=== PATIENT | female | born 1960 | race Hispanic/Latino ===

== ENCOUNTER → 2022-08-08 | Outpatient (CLI) | payer OTHER | END | disposition home or self-care (01) | LOC: RAH 13:07 | PROVIDERS: ATTEND Internal Medicine | DX: M17.11 Unilateral primary osteoarthritis, right knee (principal); M25.761 Osteophyte, right knee | CPT/HCPCS: 73562 ==

== ENCOUNTER → 2022-12-06 | Outpatient (CLI) | payer OTHER | END | disposition home or self-care (01) | LOC: RAH 10:09 | PROVIDERS: ATTEND Internal Medicine | DX: M48.02 Spinal stenosis, cervical region (principal); M47.812 Spondylosis without myelopathy or radiculopathy, cervical region; M54.2 Cervicalgia | CPT/HCPCS: 72040 ==

== ENCOUNTER 2023-10-17 13:00 | Inpatient (IN) | payer OTHER ==
[~2023-10-17] VITALS: Ht 157.5 cm; Wt 100.3 kg
[2023-10-20 11:22] LABS: BASOPHILS # (AUTO) 0.04 K/uL (0.00-0.20); BASOPHILS % (AUTO) 0.7 % (0.0-5.0); EOSINOPHILS # (AUTO) 0.17 K/uL (0.00-0.70); EOSINOPHILS % (AUTO) 2.8 % (0.0-8.0); HEMATOCRIT 32.8 % (36-48); IMMATURE GRANULOCYTE ABSOLUTE 0.02 K/uL (0-1); LYMPHOCYTES # (AUTO) 1.8 K/uL (1.0-4.8); LYMPHOCYTES % (AUTO) 29.3 % (21.0-51.0); MEAN CORPUSCULAR HEMOGLOBIN 30.2 pg (27.0-33.0); MEAN CORPUSCULAR HGB CONC 33.2 g/dL (32.0-36.0); MEAN CORPUSCULAR VOLUME 90.9 fL (79-99); MONOCYTES # (AUTO) 0.4 K/uL (0.1-1.0); MONOCYTES % (AUTO) 6.7 % (3.0-13.0); NEUTROPHILS # (AUTO) 3.7 K/uL (1.8-7.7); NEUTROPHILS % (AUTO) 60.2 % (40.0-77.0); PLATELET COUNT (AUTO) 195 K/uL (130-400); RED BLOOD CELL COUNT(AUTO) 3.61 MIL/uL (4.00-5.50); RED CELL DISTRIBUTION WIDTH 12.7 % (11.0-15.5); WHITE BLOOD COUNT (AUTO) 6.1 K/uL (4.8-10.8)
[2023-10-20 11:25] LABS: POTASSIUM 4.4 mmol/L (3.5-5.1)
[2023-10-20 11:28] LABS: INR 1.04 (0.85-1.15); PROTHROMBIN TIME 11.2 SEC (9.6-11.6)
[2023-10-20 11:45] VITALS: BP 166/88; PULSE 91; RESP 16; TEMP 97.2
[2023-10-20 11:46] LABS: B-TYPE NATRIURETIC PEPTIDE 34 pg/mL (0-100)
[2023-10-20 12:47] LABS: PARTIAL THROMBOPLASTIN TIME 19.8 SEC (26.3-35.5)
[2023-10-20] MEDS ORDERED: ISOS20TA85 PO (13:42)
[2023-10-20] MEDS ORDERED: CITA-107 PO (13:42)
[2023-10-20] MEDS ORDERED: ROSU20TA73 PO (13:42)
[2023-10-20] MEDS ORDERED: SEMA1PEN3 SQ (13:42)
[2023-10-20] MEDS ORDERED: ALBU1.252 IH (13:42)
[2023-10-20] MEDS ORDERED: CLOP75TA32 PO (13:42)
[2023-10-20] MEDS ORDERED: METF-444 PO (13:42)
[2023-10-20] MEDS ORDERED: FLUT1BLS3 IH (13:42)
[2023-10-20] MEDS ORDERED: LOSA50TA64 PO (13:42)
[2023-10-20] MEDS ORDERED: CARV25TA PO (13:42)
[2023-10-21] VITALS (39 sets, daily range): BP systolic 98–156; BP diastolic 38–91; PULSE 65–94; RESP 16–94; TEMP 96.2–99; O2SAT 94–98
[2023-10-21] MEDS: 0.9%NACL 1000ML 1,000 ML IV ONE (08:37)
[2023-10-21] MEDS ORDERED: ceFAZolin SODIUM 1 GM VIAL ONE ×2 (11:55→12:48)
[2023-10-21] MEDS ORDERED: BUPIvacaine/PF 0.25% 30ML VIAL IJ ONE (11:55)
[2023-10-21] MEDS ORDERED: HEParin-NS 1,000 UNIT/500 ML 1,000 ML IV ONE (11:55)
[2023-10-21] MEDS ORDERED: IODIXANOL 320 MG/ML 100 ML VIAL ONE (12:03)
[2023-10-21] MEDS ORDERED: proPOFol 10 MG/ML 20ML VIAL IV ONE (12:08)
[2023-10-21] MEDS ORDERED: rocuRONium bROMide 10MG/1ML 5ML VL ONE (12:08)
[2023-10-21] MEDS ORDERED: HEParin 10,000 UNIT/10ML (1,000 UNIT/ML) VIAL ONE ×2 (12:08→12:09)
[2023-10-21] MEDS ORDERED: MIDAZOLAM HCL 1 MG/ML 2ML VIAL ONE (12:08)
[2023-10-21] MEDS ORDERED: SUCCINYLCHOLINE CHLORIDE 20 MG/ML 10 ML VIAL ONE (12:08)
[2023-10-21] MEDS ORDERED: FENTanyl CITRate PF 50 MCG/1 ML 2ML VIAL ONE ×2 (12:08→12:57)
[2023-10-21] MEDS ORDERED: ePHEDrine SULFate 50 MG/ML AMPULE ONE (12:09)
[2023-10-21] MEDS ORDERED: NEOSTIGMINE METHYLSULFATE 1MG/ML IV ONE (12:09)
[2023-10-21] MEDS ORDERED: phenylEPHRINE HCL 10 MG/ML 1ML VIAL IV ONE (12:09)
[2023-10-21] MEDS ORDERED: GLYCOPYRROLATE 0.2 MG/ML 5 ML VIAL ONE (12:09)
[2023-10-21] MEDS ORDERED: ATROPINE 1MG SYG IVP ONE (12:56)
[2023-10-21] MEDS ORDERED: PROTamine SULFate 10 MG/ML 25ML VIAL IV ONE (13:18)
[2023-10-21] MEDS ORDERED: NOREPINEPHRIN 4MG/NS 250ML 250 ML IV PRN (13:30)
[2023-10-21] MEDS ORDERED: ATROPINE 1MG SYG IVP PRN ×2 (13:30→19:30)
[2023-10-21] MEDS ORDERED: ALBUTEROL 0.042% 1.25MG/3ML IH PRN (13:30)
[2023-10-21] MEDS: SUGAMMADEX SODIUM 200 MG/2 ML VIAL IV ONE (14:54)
[2023-10-21] MEDS: INSULIN humuLIN R 100 UNIT/ML 3ML SQ SCH (16:30)
[2023-10-21] MEDS: acetaMINOPHEN 500 MG TABLET PO PRN (19:26)
[2023-10-21] MEDS ORDERED: metFORmin HCL 500 MG TABLET PO SCH (21:00)
[2023-10-21] MEDS: atorVAStatin 40 MG TABLET PO SCH (21:06)
[2023-10-22] VITALS (67 sets, daily range): BP systolic 70–144; BP diastolic 44–80; PULSE 47–119; RESP 12–66; TEMP 97.9–98.8; O2SAT 97–98
[2023-10-22 04:16] LABS: BASOPHILS # (AUTO) 0.02 K/uL (0.00-0.20); BASOPHILS % (AUTO) 0.3 % (0.0-5.0); EOSINOPHILS # (AUTO) 0.07 K/uL (0.00-0.70); IMMATURE GRANULOCYTE ABSOLUTE 0.02 K/uL (0-1); LYMPHOCYTES # (AUTO) 2.2 K/uL (1.0-4.8); LYMPHOCYTES % (AUTO) 31.1 % (21.0-51.0); MEAN CORPUSCULAR HEMOGLOBIN 30.5 pg (27.0-33.0); MEAN CORPUSCULAR HGB CONC 34.1 g/dL (32.0-36.0); MEAN CORPUSCULAR VOLUME 89.4 fL (79-99); MONOCYTES # (AUTO) 0.6 K/uL (0.1-1.0); MONOCYTES % (AUTO) 8.5 % (3.0-13.0); NEUTROPHILS # (AUTO) 4.2 K/uL (1.8-7.7); NEUTROPHILS % (AUTO) 58.8 % (40.0-77.0); PLATELET COUNT (AUTO) 163 K/uL (130-400); RED BLOOD CELL COUNT(AUTO) 3.02 MIL/uL (4.00-5.50); RED CELL DISTRIBUTION WIDTH 12.7 % (11.0-15.5); WHITE BLOOD COUNT (AUTO) 7.1 K/uL (4.8-10.8)
[2023-10-22 04:24] LABS: CREATININE 0.9 mg/dL (0.5-1.0); POTASSIUM 3.7 mmol/L (3.5-5.1)
[2023-10-22] MEDS: carVEDIlol 25 MG TABLET PO SCH (09:00)
[2023-10-22] MEDS: citaLOPram 20 MG TABLET PO SCH (09:06)
[2023-10-22] MEDS: LoSARTan 50 MG TABLET PO SCH (09:06)
[2023-10-22] MEDS: cloPIDOgrel 75MG TAB PO SCH (09:06)
[2023-10-22] MEDS: (Fluticasone/Umeclidin/Vilanter (Trelegy Ellipta 100-62.5- IH SCH (09:15)
[2023-10-22] MEDS: ISOSORBIDE MONONITRATE 20 MG TABLET PO SCH (13:10)
[2023-10-28] MEDS ORDERED: (Semaglutide (Ozempic) 1 MG) SQ SCH (09:00)
== END 2023-10-22 18:47 | disposition home or self-care (01) | DRG 35 ==
LOC: DAHIP 10-21 07:37 → EDSTATUS 10-21 14:00 → 2CV 10-21 14:13
PROVIDERS: ADMIT Hospitalist; ATTEND Hospitalist
PROC: B3141ZZ Fluoroscopy of Left Common Carotid Artery using Low Osmolar Contrast (ICD-10-PCS; 2023-10-21)
PROC: B3171ZZ Fluoroscopy of Left Internal Carotid Artery using Low Osmolar Contrast (ICD-10-PCS; 2023-10-21)
PROC: B31B1ZZ Fluoroscopy of Left External Carotid Artery using Low Osmolar Contrast (ICD-10-PCS; 2023-10-21)
PROC: 3E023BZ Introduction of Anesthetic Agent into Muscle, Percutaneous Approach (ICD-10-PCS; 2023-10-21)
PROC: B54BZZA Ultrasonography of Right Lower Extremity Veins, Guidance (ICD-10-PCS; 2023-10-21)
PROC: 037L3DZ Dilation of Left Internal Carotid Artery with Intraluminal Device, Percutaneous Approach (ICD-10-PCS; principal; 2023-10-21 10:00)
PROC: 06Q Lower Veins, Repair (ICD-10-PCS; 2023-10-21 10:00)
DX: I65.23 Occlusion and stenosis of bilateral carotid arteries (principal); Z68.41 Body mass index [BMI] 40.0-44.9, adult; E11.9 Type 2 diabetes mellitus without complications; I10 Essential (primary) hypertension; I25.10 Atherosclerotic heart disease of native coronary artery without angina pectoris; E78.5 Hyperlipidemia, unspecified; E66.09 Other obesity due to excess calories; Z95.1 Presence of aortocoronary bypass graft
CPT/HCPCS: 36415; 37215; 71045; 80048; 82948; 83880; 85025; 85610; 85730; 86850; 86900; 86901; 86923; 93005; A4606; G0378; J0330; J0461; J0690; J1644; J2250; J2371; J2704; J2710; J2720; J3010; J3490; J7030; Q9967; A4215; A4216; A4221; A4222; A4223; A4649; A4663; A6219; C1713; C1760; C1769; C1876; C1884; C1894; J0665

== ENCOUNTER 2023-11-01 15:02 | Emergency (ER) | payer OTHER ==
[~2023-11-01] VITALS: Ht 157.5 cm; Wt 100.2 kg
[~2023-11-01 15:02] MED LIST: ALBU1.252 IH; CARV25TA PO; CITA-107 PO; CLOP75TA32 PO; FLUT1BLS3 IH; ISOS20TA85 PO; LOSA50TA64 PO; METF-444 PO; ROSU20TA73 PO; SEMA1PEN3 SQ
[2023-11-01 15:39] LABS: BASOPHILS # (AUTO) 0.05 K/uL (0.00-0.20); BASOPHILS % (AUTO) 0.7 % (0.0-5.0); HEMATOCRIT 32.2 % (36-48); IMMATURE GRANULOCYTE ABSOLUTE 0.03 K/uL (0-1); LYMPHOCYTES # (AUTO) 2.4 K/uL (1.0-4.8); LYMPHOCYTES % (AUTO) 35.9 % (21.0-51.0); MEAN CORPUSCULAR HEMOGLOBIN 29.9 pg (27.0-33.0); MEAN CORPUSCULAR HGB CONC 33.2 g/dL (32.0-36.0); MEAN CORPUSCULAR VOLUME 89.9 fL (79-99); MONOCYTES # (AUTO) 0.4 K/uL (0.1-1.0); NEUTROPHILS # (AUTO) 3.6 K/uL (1.8-7.7); PLATELET COUNT (AUTO) 293 K/uL (130-400); RED BLOOD CELL COUNT(AUTO) 3.58 MIL/uL (4.00-5.50); RED CELL DISTRIBUTION WIDTH 12.4 % (11.0-15.5); WHITE BLOOD COUNT (AUTO) 6.7 K/uL (4.8-10.8)
[2023-11-01 15:56] LABS: CREATININE 1.3 mg/dL (0.5-1.0); POTASSIUM 4.7 mmol/L (3.5-5.1)
[2023-11-01 15:57] LABS: INR 1.03 (0.85-1.15); PROTHROMBIN TIME 11.1 SEC (9.6-11.6)
[2023-11-01 15:59] LABS: PARTIAL THROMBOPLASTIN TIME 25.6 SEC (26.3-35.5)
[2023-11-01 18:23] VITALS: BP 133/66; PULSE 85; RESP 16; TEMP 98.4; O2SAT 100
== END 2023-11-01 18:30 | disposition home or self-care (01) ==
LOC: EDH 15:02
DX: I97.638 Postprocedural hematoma of a circulatory system organ or structure following other circulatory system procedure (principal); I11.9 Hypertensive heart disease without heart failure; E11.9 Type 2 diabetes mellitus without complications; E78.00 Pure hypercholesterolemia, unspecified; Z79.02 Long term (current) use of antithrombotics/antiplatelets; Z79.84 Long term (current) use of oral hypoglycemic drugs; Z79.899 Other long term (current) drug therapy; Z90.710 Acquired absence of both cervix and uterus; Z90.89 Acquired absence of other organs; Y83.8 Other surgical procedures as the cause of abnormal reaction of the patient, or of later complication, without mention of misadventure at the time of the procedure
CPT/HCPCS: 36415; 76536; 80048; 85025; 85610; 85730

== ENCOUNTER → 2024-02-05 | Outpatient (CLI) | payer OTHER ==
[~2024-02-05] MED LIST changes: -ROSU20TA73 PO; +ROSU20TA98 PO
--- NOTE | 2024-02-05 10:51 | HMCIMG ---
Cervical spine 2 views History: CERVICALGIA Comparison: none FINDINGS: C1 through the top of T1 are seen on the lateral view. The prevertebral soft tissues are normal. No fractures or dislocations are seen. There are spondylytic changes and there are degenerative changes of the facet joints. There is narrowing of the C5-6 and C6-7 discs consistent with degenerative disc disease. The other disc spaces are intact. There is adequate alignment. IMPRESSION: Degenerative changes as noted.
== END | disposition home or self-care (01) ==
LOC: RAH 09:22
PROVIDERS: ATTEND Internal Medicine
DX: M47.812 Spondylosis without myelopathy or radiculopathy, cervical region (principal); M48.02 Spinal stenosis, cervical region
CPT/HCPCS: 72040